=== PATIENT | female | born 1960 | race Caucasian/White ===

== ENCOUNTER → 2016-11-29 | Outpatient (CLI) | payer OTHER ==
--- NOTE | ~2016-11-29 | NM5 ---
[facility] A Service of [facility] & [facility] RADIOLOGY TEXT RESULTS PATIENT: MIQUEL CLIFFORD LOCATION: [facility] : 58 UNIT #: [id number] AGE: [address]: Kimberly Walsh APRN SEX: F ORDER DR: [id number] [facility] [address] [place], [place] [address] [id number] O MR#: [id number] Acc #: [id number] NAME: MIQUEL CLIFFORD. : 1960 SEX: F STUDY DATE/TIME: 11/29/2016 10:24 UNIT: [facility] ROOM: STUDY DESCRIPTION: MN Bone or Joint Limited Scan Attending Physician: Kimberly Walsh A.P.R.N. Referring Physician: Kimberly Walsh A.P.R.N. Ordering Physician: Kimberly Walsh A.P.R.N. Primary Care Physician: Ro Acosta M.D. MEDICAL IMAGING REPORT This report is preliminary unless electronic signature is present EXAM Three-phase bone scan HISTORY 56-year-old female with ulcer right medial malleolus for 2 months. Evaluate for osteomyelitis. COMPARISON Right ankle films 11/20/2016 FINDINGS Three-phase bone scan was performed over the feet and ankles following the intravenous administration of 25.1 mCi of technetium 99m MDP. Examination demonstrates mild increased flow to the medial aspect of the right lower leg. Immediate blood-pool imaging also demonstrates increased uptake within the medial aspect the right lower leg. Delayed-phase imaging demonstrates no convincing increased uptake within the lower leg, foot or ankle. Findings support soft tissue infection without evidence of underlying osteomyelitis. Imaging of the left foot and ankle appears normal. IMPRESSION Increased uptake within the medial soft tissues of the right lower leg and ankle, seen only on flow and immediate blood pool images. This is compatible with a soft tissue inflammation or infection. No delayed uptake seen within the bone to suggest underlying osteomyelitis. Dictated by... Manasa Magallon M.D. THIS IS AN ELECTRONICALLY VERIFIED REPORT Manasa Magallon M.D. at 11/30/2016 7:[address] [facility]. [facility] A Service of [facility] & [facility] RADIOLOGY TEXT RESULTS PATIENT: MIQUEL LCIFFORD LOCATION: [facility] : 58 UNIT #: [id number] AGE: [address]: Kimberly Walsh APRN SEX: F ORDER DR: Dre TD: 11/29/2016 15:53 JOB #: [id number] MEDICAL IMAGING REPORT Page 1 of 1 COPY
== END | disposition home or self-care (01) ==
LOC: CNUC 09:49
DX: M86.9 Osteomyelitis, unspecified (principal); R94.8 Abnormal results of function studies of other organs and systems
CPT/HCPCS: 78300; A9503